=== PATIENT | female | born 1955 | race Caucasian/White ===

== ENCOUNTER → 2017-05-19 | Outpatient (CLI) | payer BC ==
[~2017-05-19] MED LIST: IOHE240V IV; [UNRECOGNIZED DRUG - CODE] PO; [UNRECOGNIZED DRUG - CODE] PO; [UNRECOGNIZED DRUG - CODE] PO
--- NOTE | 2017-05-19 11:41 | RAD ---
Chest one view and 2 view left rib 05/19/2017 Clinical indication: Left rib pain. Comparison: None. Findings: Partial visualization of a gastric lap band. Cardiac and mediastinal silhouettes are within normal limits. No pleural effusion, pneumothorax or focal consolidation. No acute displaced left rib fracture deformity. Impression: No acute cardiopulmonary abnormality or displaced left rib fracture deformity. If there is continued concern, noncontrast CT is more sensitive.
== END | disposition home or self-care (01) ==
LOC: DXRADRC 11:17
PROVIDERS: ATTEND Family Medicine
DX: R07.81 Pleurodynia (principal); W19.XXXA Unspecified fall, initial encounter; Y93.89 Activity, other specified; Y92.89 Other specified places as the place of occurrence of the external cause; Y99.8 Other external cause status
CPT/HCPCS: 71101

== ENCOUNTER → 2017-12-29 | Outpatient (CLI) | payer BC ==
--- NOTE | 2017-12-29 09:17 | RAD ---
Right knee, 3 views, 12/29/2017: History: Knee pain since recent injury A total knee prosthesis is in place in satisfactory position. No fracture or dislocation is identified. There is mild streaky subcutaneous edema. IMPRESSION: 1. The right total knee prosthesis is in satisfactory position. 2. No acute bony abnormality is detected.
== END | disposition home or self-care (01) ==
LOC: PMG 08:12
PROVIDERS: ATTEND Family Medicine
DX: S89.91XD Unspecified injury of right lower leg, subsequent encounter (principal); R60.0 Localized edema; X58.XXXD Exposure to other specified factors, subsequent encounter
CPT/HCPCS: 73560

== ENCOUNTER 2020-03-12 08:40 | Emergency (ER) | payer MEDICARE, BC ==
[~2020-03-12] VITALS: Ht 182.9 cm; Wt 123.0 kg
--- NOTE | 2020-03-12 09:05 | PHYS DOC ---
Past History Past Medical History: Diabetes, Hypertension Past Surgical History: Appendectomy, Cholecystectomy, Hysterectomy, Knee Replacement Alcohol Use: None General Adult EDM: Chief Complaint: MECHANICAL FALL HPI: HPI: 64-year-old female presents after a fall at home. 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 She currently has left ankle pain, bilateral knee pain, and right upper rib pain. The patient was not going to come into the hospital, but she does not feel like she can put weight on her left ankle and her daughter encouraged her to come in. The patient does have bilateral knee replacements and is worried about disrupting those. She denies hitting her head or loss of consciousness. She denies numbness, tingling, altered sensation. She has no other complaints at this time. Review of Systems: Review of Systems: Constitutional: Denies fever or chills Eyes: Denies change in visual acuity HENT: Denies nasal congestion or sore throat Respiratory: Denies cough or shortness of breath Cardiovascular: Denies chest pain or edema GI: Denies abdominal pain, nausea, vomiting, bloody stools or diarrhea : Denies dysuria Musculoskeletal: Left ankle pain, bilateral knee pain, right rib pain Integument: Denies rash Neurologic: Denies headache, focal weakness or sensory changes Endocrine: Denies polyuria or polydipsia Lymphatic: Denies swollen glands Psychiatric: Denies depression or anxiety Heart Score: Risk Factors: Risk Factors: DM, Current or recent (<one month) smoker, HTN, HLP, family history of CAD, obesity. Risk Scores: Score 0 - 3: 2.5% MACE over next 6 weeks - Discharge Home Score 4 - 6: 20.3% MACE over next 6 weeks - Admit for Clinical Observation Score 7 - 10: 72.7% MACE over next 6 weeks - Early Invasive Strategies Allergies: Allergies: Allergies Coded Allergies Type Severity Reaction Last Updated Verified Iodinated Contrast- Oral and IV Dye Allergy Unknown 10/18/13 Yes Physical Exam: PE: Constitutional: Well developed, obese, well nourished, no acute distress, non- toxic appearance. [] HENT: Normocephalic, atraumatic, bilateral external ears normal, oropharynx moist, no oral exudates, nose normal. [] Eyes: PERRLA, EOMI, conjunctiva normal, no discharge. [] Neck: Normal range of motion, no tenderness, supple, no stridor. [] Cardiovascular: Heart rate regular rhythm, no murmur [] Lungs & Thorax: Bilateral breath sounds clear to auscultation. Mild mid right rib pain [] Abdomen: Bowel sounds normal, soft, no tenderness, no masses, no pulsatile masses. [] Skin: Warm, dry, no erythema, no rash. [] Back: No tenderness, no CVA tenderness. [] Extremities: Left ankle swelling tenderness, no obvious deformity. No obvious deformity of the knees. [] Neurologic: Alert and oriented X 3, normal motor function, normal sensory function, no focal deficits noted. [] Psychologic: Affect normal, judgement normal, mood normal. [] Current Patient Data: Vital Signs: Vital Signs Date Time Temp Pulse Resp B/P (MAP) Pulse Ox O2 Delivery O2 Flow Rate FiO2 03/12/20 08:51 98.6 85 18 144/78 (100) 98 Room Air EKG: EKG: [] Radiology/Procedures: Radiology/Procedures: [] Impressions: Three-view left ankle and three-view bilateral knee dated 03/12/2020. No comparison available. Clinical data indication: Pain after injury. FINDINGS: 3 views left ankle show normal bony alignment. No displaced fracture. No acute osseous or articular abnormality. Bony fragmentation at the tip of the lateral malleolus could be related to accessory ossification center or remote avulsion injury. Small calcaneal spur. 3 views of left knee show normal bony alignment. There is evidence of prior total knee arthroplasty. Femoral and tibial components are intact. No periprosthetic fracture or malalignment. No apparent joint effusion. Small loose body in the anterior joint space. 3 views of the right knee show normal bony alignment. Evidence of prior total knee arthroplasty. Femoral and tibial components are intact. No periprosthetic fracture or malalignment. No apparent joint effusion or loose body. IMPRESSION: 1. No acute bony abnormality. 2. Status post bilateral total knee arthroplasty. Small loose body at the anterior joint space on the left. Electronically signed by: Tawanda Lennon MD (03/12/2020 9:37 AM) [id number] DICTATED AND SIGNED BY: TAWANDA LENNON MD DATE: 03/12/20 0937 CC: ROSALIE HUFFMAN DO; JUAQUIN HANNAH MD ~ Single view chest and right-sided rib study dated 03/12/2020. Comparison made to 05/19/2017. CLINICAL INDICATION: Pain after fall. FINDINGS: AP view of chest shows normal heart and mediastinal contours. Lungs are somewhat hyperinflated but otherwise clear. No consolidation or pleural effusion. No pneumothorax. Dedicated views of the right-sided ribs show no evidence of displaced right rib fracture. No acute bony abnormality. Mild degenerative change of the glenohumeral joint and right AC joint. IMPRESSION: 1. No acute radiographic abnormality. No evidence of displaced right rib fracture. Electronically signed by: Tawanda Lennon MD (03/12/2020 9:39 AM) [id number] DICTATED AND SIGNED BY: TAWANDA LENNON MD DATE: 03/12/20 0939 CC: ROSALIE HUFFMAN DO; JUAQUIN HANNAH MD ~ Course & Med Decision Making: Course & Med Decision Making Pertinent Labs and Imaging studies reviewed. (See chart for details) The patient's x-rays are negative for fracture. Her knee replacements appear to be in good alignment. I have given her 1 [place] 5/325 for her discomfort in the ER. We will give her an air splint for her ankle. I will also discharge her on a short course of [place]. She is stable for discharge at this time. [] Gail Disclaimer: Gail Disclaimer: This electronic medical record was generated, in whole or in part, using a voice recognition dictation system. Departure Departure: Impression: Primary Impression: Fall from slip, trip, or stumble Qualified Codes: W01.0XXA - Fall on same level from slipping, tripping and stumbling without subsequent striking against object, initial encounter Additional Impression: Left ankle sprain Qualified Codes: S93.402A - Sprain of unspecified ligament of left ankle, initial encounter Disposition: HOME/RESIDENCE PRIOR TO ADM Condition: STABLE Referrals: JUAQUIN HANNAH MD (PCP) Patient Instructions: Ankle Sprain, Acute, with Phase I Rehab-[facility] Scripts Hydrocodone Bit/Acetaminophen (NORCO 5-325 TABLET) 1 Each Tablet 1 TAB PO PRN Q6HRS PRN for PAIN, #10 TAB 0 Refills Prov: ROSALIE HUFFMAN DO 03/12/20 ROSALIE HUFFMAN DO March 12, 2020 09:05
[2020-03-12] MEDS ORDERED: HYDROcodone/APAP 5/325MG 1 TAB TABLET PO ONE (09:15)
--- NOTE | 2020-03-12 09:40 | RAD ---
Three-view left ankle and three-view bilateral knee dated 03/12/2020. No comparison available. Clinical data indication: Pain after injury. FINDINGS: 3 views left ankle show normal bony alignment. No displaced fracture. No acute osseous or articular abnormality. Bony fragmentation at the tip of the lateral malleolus could be related to accessory ossification center or remote avulsion injury. Small calcaneal spur. 3 views of left knee show normal bony alignment. There is evidence of prior total knee arthroplasty. Femoral and tibial components are intact. No periprosthetic fracture or malalignment. No apparent joint effusion. Small loose body in the anterior joint space. 3 views of the right knee show normal bony alignment. Evidence of prior total knee arthroplasty. Femoral and tibial components are intact. No periprosthetic fracture or malalignment. No apparent joint effusion or loose body. IMPRESSION: 1. No acute bony abnormality. 2. Status post bilateral total knee arthroplasty. Small loose body at the anterior joint space on the left. Electronically signed by: Tawanda Lennon MD (03/12/2020 9:37 AM) [id number]
--- NOTE | 2020-03-12 09:42 | RAD ---
Single view chest and right-sided rib study dated 03/12/2020. Comparison made to 05/19/2017. CLINICAL INDICATION: Pain after fall. FINDINGS: AP view of chest shows normal heart and mediastinal contours. Lungs are somewhat hyperinflated but otherwise clear. No consolidation or pleural effusion. No pneumothorax. Dedicated views of the right-sided ribs show no evidence of displaced right rib fracture. No acute bony abnormality. Mild degenerative change of the glenohumeral joint and right AC joint. IMPRESSION: 1. No acute radiographic abnormality. No evidence of displaced right rib fracture. Electronically signed by: Tawanda Lennon MD (03/12/2020 9:39 AM) [id number]
[2020-03-12] MEDS ORDERED: HYDR-3165 PO (09:52)
[2020-03-12 10:13] VITALS: BP 127/57
== END 2020-03-12 10:13 | disposition home or self-care (01) ==
LOC: ER 08:40
DX: S93.402A Sprain of unspecified ligament of left ankle, initial encounter (principal); E11.9 Type 2 diabetes mellitus without complications; M25.561 Pain in right knee; M25.562 Pain in left knee; R07.81 Pleurodynia; I10 Essential (primary) hypertension; Z91.041 Radiographic dye allergy status; W01.0XXA Fall on same level from slipping, tripping and stumbling without subsequent striking against object, initial encounter; Y93.89 Activity, other specified; Y92.098 Other place in other non-institutional residence as the place of occurrence of the external cause; Y99.8 Other external cause status
CPT/HCPCS: 71101; 73562; 73610; 99284; L4350